=== PATIENT | female | born 1965 | race African-American/Black ===

== ENCOUNTER 2024-04-01 21:57 | Emergency (ER) | payer OTHER, MEDICAID ==
[~2024-04-01] VITALS: Ht 167.6 cm; Wt 73.0 kg
[2024-04-01 22:49] VITALS: BP 148/68; PULSE 89; RESP 14; TEMP 98.2; O2SAT 98
[2024-04-02] MEDS ORDERED: ONDANSETRON 4MG ODT PO STA (00:29)
== END 2024-04-02 01:32 | disposition left against medical advice (07) ==
LOC: ER 21:57
DX: R11.0 Nausea (principal); Z53.21 Procedure and treatment not carried out due to patient leaving prior to being seen by health care provider